=== PATIENT | male | born 1970 | race Caucasian/White ===

== ENCOUNTER 2019-10-22 18:26 | Emergency (ER) | payer SELFPAY ==
--- NOTE | 2019-10-22 19:18 | ER Document Report ---
ED Medical Screen (RME) - General Chief Complaint: Altered Mental Status Stated Complaint: SUSPECTED DRUG ABUSE Time Seen by Provider: 10/22/19 18:57 Information source: Patient Notes: Patient states that he woke up in an ambulance. Patient states that he remembers going to work and getting off going to the bank and then around 530 had no memory of incidents. Nurses note reports that patient saw police and began to run. It was reported that patient ran head first into a trailer. Patient was reported to maybe have had seizure-like activity although this was not able to be confirmed. Patient denies any memory of this. Patient does complain of neck pain and chest pain. Patient also complains of tongue soreness, patient with abrasions to the tongue. Patient states he did have one seizure about 5 years ago but otherwise has no known history of seizure. I have greeted and performed a rapid initial assessment of this patient. A comprehensive ED assessment and evaluation of the patient, analysis of test results and completion of the medical decision making process will be conducted by additional ED providers. TRAVEL OUTSIDE OF THE [place] IN LAST 30 DAYS: No - Related Data Allergies/Adverse Reactions: No Known Allergies Allergy (Unverified 11/02/15 19:24) Past Medical History - Immunizations Hx Diphtheria, Pertussis, Tetanus Vaccination: Yes Physical Exam - Vital signs Vitals: Temp Pulse Resp BP Pulse Ox 98.1 F 109 H 16 108/69 99 10/22/19 18:41 10/22/19 18:41 10/22/19 18:41 10/22/19 18:41 10/22/19 18:41 - General General appearance: Appears well, Alert Notes: Abrasions to tongue, cervical tenderness Course - Vital Signs Vital signs: Temp Pulse Resp BP Pulse Ox 98.1 F 109 H 16 108/69 99 10/22/19 18:41 10/22/19 18:41 10/22/19 18:41 10/22/19 18:41 10/22/19 18:41
--- NOTE | 2019-10-22 19:50 | RADIOLOGY REPORT (SQ) ---
EXAM DESCRIPTION: CT CERVICAL SPINE WITHOUT COMPLETED DATE/TIME: 10/22/2019 7:40 pm REASON FOR STUDY: neck pain, axial load injury COMPARISON: None. TECHNIQUE: Axial images acquired through the cervical spine without intravenous contrast. Images re viewed with lung, soft tissue and bone windows. Reconstructed coronal and sagittal MPR images review ed. Images stored on PACS. All CT scanners at this facility use dose modulation, iterative reconstruction, and/or weight based d osing when appropriate to reduce radiation dose to as low as reasonably achievable (ALARA). [facility]: Dose Right [facility]: CareDose [facility]: Dose Right [facility]: Teradose 4D [facility]: Smart [employer] RADIATION DOSE: CT Rad equipment meets quality standard of care and radiation dose reduction techniq ues were employed. CTDIvol: 17.6 mGy. DLP: 436 mGy-cm. mGy. LIMITATIONS: None. FINDINGS: ALIGNMENT: Anatomic. MINERALIZATION: Normal. VERTEBRAL BODIES: No fractures or dislocation. DISCS: Mild multilevel disc space narrowing with osteophytes. FACETS, LATERAL MASSES, POSTERIOR ELEMENTS: Facet arthropathy. No fractures. No dislocation. No ac telida findings. HARDWARE: None in the spine. VISUALIZED RIBS: No fractures. LUNG APICES AND SOFT TISSUES: Emphysematous changes. OTHER: No other significant finding. IMPRESSION: No evidence of acute osseous injury. Background of mild multilevel spondylotic changes. TECHNICAL DOCUMENTATION: JOB ID: [id number] Quality ID # [id number]: Final reports with documentation of one or more dose reduction techniques (e.g., Au tomated exposure control, adjustment of the mA and/or kV according to patient size, use of iterative reconstruction technique) 2010 [employer]- All Rights Reserved Reading location - IP/workstation name: [email or web address]
--- NOTE | 2019-10-22 19:55 | RADIOLOGY REPORT (SQ) ---
EXAM DESCRIPTION: CHEST 2 VIEWS COMPLETED DATE/TIME: 10/22/2019 7:45 pm REASON FOR STUDY: cp COMPARISON: None. EXAM PARAMETERS: NUMBER OF VIEWS: two views TECHNIQUE: Digital Frontal and Lateral radiographic views of the chest acquired. RADIATION DOSE: NA LIMITATIONS: none FINDINGS: LUNGS AND PLEURA: No focal consolidation, pleural effusion, or pneumothorax. MEDIASTINUM AND HILAR STRUCTURES: No masses or contour abnormalities. HEART AND VASCULAR STRUCTURES: Heart normal size. No evidence for failure. BONES: No acute findings. HARDWARE: None in the chest. OTHER: No other significant finding. IMPRESSION: No evidence of acute cardiopulmonary abnormality. TECHNICAL DOCUMENTATION: JOB ID: [id number] [employer]- All Rights Reserved Reading location - IP/workstation name: [email or web address]
[2019-10-22 20:00] LABS: ABSOLUTE EOSINOPHILS # (AUTO) 0.1 10^3/uL (0.0-0.6); ABSOLUTE MONOCYTES (AUTO) 0.4 10^3/uL (0.1-1.4); ABSOLUTE NEUT (AUTO) 5.7 10^3/uL (1.7-8.2); BASOPHILS % (AUTO) 0.5 % (0-2); EOSINOPHILS % (AUTO) 0.9 % (0-6); HEMATOCRIT 32.9 % (37.9-51.0); HEMOGLOBIN 11.6 g/dL (13.5-17.0); LYMPHOCYTES % (AUTO) 13.4 % (13-45); MEAN CORPUSCULAR HEMOGLOBIN 32.4 pg (27.0-33.4); MEAN CORPUSCULAR HGB CONC 35.2 g/dL (32.0-36.0); MEAN CORPUSCULAR VOLUME 92 fl (80-97); MONOCYTES % (AUTO) 5.8 % (3-13); PLATELET COUNT 287 10^3/uL (150-450); RED BLOOD COUNT 3.57 10^6/uL (4.35-5.55); RED CELL DISTRIBUTION WIDTH 13.3 % (11.5-14.0); SEGMENTED NEUTROPHILS % (AUTO) 79.4 % (42-78); TOTAL CELLS COUNTED % (AUTO) 100 %; WHITE BLOOD COUNT 7.2 10^3/uL (4.0-10.5)
[2019-10-22 20:26] LABS: ALBUMIN 3.9 g/dL (3.5-5.0); ALKALINE PHOSPHATASE 60 U/L (38-126); ANION GAP 7 (5-19); ASPARTATE AMINO TRANSFERASE 111 U/L (17-59); BILIRUBIN,DIRECT 0.1 mg/dL (0.0-0.4); BILIRUBIN,TOTAL 0.4 mg/dL (0.2-1.3); BLOOD UREA NITROGEN 12 mg/dL (7-20); CALCIUM 9.3 mg/dL (8.4-10.2); CARBON DIOXIDE 26 mmol/L (22-30); CHLORIDE 106 mmol/L (98-107); CREATINE KINASE 101 U/L (55-170); GLUCOSE 89 mg/dL (75-110); POTASSIUM 4.3 mmol/L (3.6-5.0)
[2019-10-22 20:28] LABS: ALCOHOL < 10 mg/dL (NONE DETECTED)
[2019-10-22 21:44] LABS: URINE BARBITURATES SCREEN NEGATIVE; URINE BENZODIAZEPINES SCREEN NEGATIVE; URINE COCAINE SCREEN NEGATIVE; URINE MARIJUANA (THC) SCREEN NEGATIVE; URINE METHADONE SCREEN NEGATIVE; URINE PHENCYCLIDINE SCREEN NEGATIVE
--- NOTE | 2019-10-22 22:37 | ER Document Report ---
ED General - General Chief Complaint: Altered Mental Status Stated Complaint: SUSPECTED DRUG ABUSE Time Seen by Provider: 10/22/19 18:57 Mode of Arrival: Medic Information source: Emergency Med Personnel Cannot obtain history due to: Altered mental status, Other - Likely postictal state from seizure activity prior to coming into the ED TRAVEL OUTSIDE OF THE [place] IN LAST 30 DAYS: No - HPI Onset: Just prior to arrival Onset/Duration: Sudden Quality of pain: Achy Severity: Moderate Pain Level: 4 Associated symptoms: Other - Mr. Marito mg is a 49-year-old male with a history of substance abuse sinusitis in the past and syncope. Patient also reports that he had had a seizure 5 years ago and has not had any seizure activity since that time. Patient does have a long history of substance abuse including methamphetamines and Xanax. Patient reports that he did snort some meth amphetamines 1 day ago. Patient states that he had friends to come over to the house where he stays with his mother and because of their commotion and questionable substance abuse and overdose he participated in calling EMS to come to his residence. All the subjects were outside in the yard when the EMS arrive d with lights and sirens. Mr. Allen at that time took off running and ran into his own house striking himself up against the house outside. Patient then ran into the bushes and started seizing. Seizure activity was witnessed as myoclonic jerks. Patient was brought to us by EMS at this time at that time at the scene he was disoriented to time and space. Also complained of neck pain and some chest pain. On arrival patient was oriented x3 but had sketchy memory of the events that happened as to what brought him to the emergency department. Similar symptoms previously: Yes - Seizure activity 5 years ago Recently seen / treated by doctor: No - Related Data Allergies/Adverse Reactions: No Known Allergies Allergy (Unverified 11/02/15 19:24) Past Medical History - General Information source: Patient Cannot obtain history due to: Other - Postictal state and confusion on arrival - Social History Smoking Status: Current Some Day Smoker Frequency of alcohol use: Occasional Drug Abuse: Methamphetamine, Other - Xanax Occupation: Home Health Care Worker Lives with: Family Family History: Reviewed & Not Pertinent, Other - Demented Patient has suicidal ideation: No Patient has homicidal ideation: No - Immunizations Hx Diphtheria, Pertussis, Tetanus Vaccination: Yes Review of Systems - Review of Systems Neurological/Psychological: See HPI, Seizure Physical Exam - Vital signs Vitals: Temp Pulse Resp BP Pulse Ox 98.1 F 109 H 16 108/69 99 10/22/19 18:41 10/22/19 18:41 10/22/19 18:41 10/22/19 18:41 10/22/19 18:41 Interpretation: Normal - General General appearance: Appears well, Alert - HEENT Head: Normocephalic, Atraumatic Eyes: Normal Pupils: PERRL Mucous membranes: Moist, Other - Abrasion to the left side of the tongue no active bleeding at this time - Respiratory Respiratory status: No respiratory distress Chest status: Nontender Breath sounds: Normal Chest palpation: Normal - Cardiovascular Rhythm: Regular Heart sounds: Normal auscultation Murmur: No - Abdominal Inspection: Normal Distension: No distension Bowel sounds: Normal Tenderness: Nontender Organomegaly: No organomegaly - Back Back: Normal, Nontender - Extremities General upper extremity: Normal inspection, Nontender, Normal color, Normal ROM, Normal temperature General lower extremity: Normal inspection, Nontender, Normal color, Normal ROM, Normal temperature, Normal weight bearing. No: Derek's sign - Neurological Neuro grossly intact: Yes Cognition: Normal, Other - Initial confusion on arrival as to the events that led up to his EMS transport to the emergency department. Over time patient was filtering in details of the event of the evening at his residence. He remembered calling EMS to come see they have visitors that are coming to visit him because there was concern that 2 of his friends had overdosed. Patient then became a patient of the EMS as he ran away from the authority ran into the house and struck his head and ran into the bushes and started seizing. Orientation: AAOx4 [place] Coma Scale Eye Opening: Spontaneous [place] Coma Scale Verbal: Oriented [place] Coma Scale Motor: Obeys Commands [place] Coma Scale Total: 15 Speech: Normal Motor strength normal: LUE, RUE, LLE, RLE Sensory: Normal - Psychological Associated symptoms: Normal affect, Normal mood, Flat affect - Skin Skin Temperature: Warm Skin Moisture: Dry Skin Color: Normal Course - Vital Signs Vital signs: Temp Pulse Resp BP Pulse Ox 98.1 F 109 H 15 108/69 97 10/22/19 18:41 10/22/19 18:41 10/23/19 00:00 10/22/19 18:41 10/23/19 00:00 - Laboratory Result Diagrams: 10/22/19 19:21 10/22/19 19:21 Laboratory results interpreted by me: 10/22/19 10/22/19 19:21 19:21 RBC 3.57 L Hgb 11.6 L Hct 32.9 L Seg Neutrophils % 79.4 H AST 111 H - Diagnostic Test Radiology reviewed: Image reviewed, Reports reviewed - EKG Interpretation by Me Additional EKG results interpreted by me: 10/23/19 01:35 There are no acute changes ST elevations or depressions to patient's EKG Discharge - Discharge Clinical Impression: Substance abuse, 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 Observation is necessary, however. Take only clear liquids for the first few hours, unless told otherwise by the doctor. If no pain medication was prescribed, you may take acetaminophen according to the directions on the bottle. Do not take any medication that may alter your level of alertness (unless you've discussed it with the doctor first). Limit activity for the first 24 hours. Bed rest is best. During the first 24 hours, check to see approximately every two to three hours that the patient is easily arousable, responds normally, and can perform common tasks such as walking without difficulty. Contact your doctor or go to the hospital if any of the following things occur: Persistent vomiting, difficulty in arousing the patient, worsening or continued headache, or failure to improve as expected. Head injuries can cause symptoms that persist for a few days or even a few weeks. In addition patient had most likely a substance abuse withdrawal seizure activity this evening. Patient admits to having use of methamphetamine in the past 24 hours. Patient also struck his head tonight and has some loss of memory of the details which suggest a mild concussion. Patient is advised to discontinue use of substance abuse substances, and to follow-up with neurology in 1 to 2 days. Recommend the patient takes Tylenol for his headache. Patient is advised to return to the emergency department if he has further complications. Referrals: ROJAS CLARK MD [NO LOCAL MD] - Follow up as needed
[2019-10-22] MEDS ORDERED: NORMAL SALINE 1000 ML 1,000 ML IV ONE (23:54)
[2019-10-23] MEDS ORDERED: LORAZEPAM INJ 2 MG/1 ML VIAL IV ONE (00:10)
[2019-10-23] MEDS ORDERED: LEVETIRACETAM INJ/PF 500 MG/5 ML SDV IV ONE (00:11)
--- NOTE | 2019-10-23 00:37 | RADIOLOGY REPORT (SQ) ---
CT HEAD WITHOUT IV CONTRAST EXAM DATE: 10/22/2019 11:55 PM PRODUCT DEVELOPMENT ENGINEER HISTORY: Seizure. COMPARISON: None. TECHNIQUE: CT scan of the brain without IV contrast. This exam was performed according to our departmental dose-optimization program, which includes automated exposure control, adjustment of the mA and/or kV according to patient size and/or use of iterative reconstruction technique. FINDINGS: The ventricles, cisterns, and sulci are age-appropriate. No evidence of acute infarction, intracranial hemorrhage, extra-axial fluid collection, or midline shift. Mild mucosal thickening of the left maxillary sinus. No air-fluid levels. Mastoids are clear. No depressed skull fracture. IMPRESSION: No acute intracranial findings.
[2019-10-23] MEDS ORDERED: KETOROLAC TROMETHAMINE INJ/PF 30 MG/1 ML SDV IV ONE (01:03)
[2019-10-23 03:55] VITALS: BP 114/83
--- NOTE | 2019-10-23 09:30 | EKG REPORT ---
SEVERITY:- NORMAL ECG - SINUS RHYTHM : Confirmed by: Pito Ron 23-Oct-2019 09:29:05
== END 2019-10-23 03:55 | disposition home or self-care (01) ==
LOC: ER 18:26
DX: F19.939 Other psychoactive substance use, unspecified with withdrawal, unspecified (principal); F14.10 Cocaine abuse, uncomplicated; F13.10 Sedative, hypnotic or anxiolytic abuse, uncomplicated; G40.802 Other epilepsy, not intractable, without status epilepticus; S00.512A Abrasion of oral cavity, initial encounter; W22.09XA Striking against other stationary object, initial encounter; Y93.89 Activity, other specified; Y92.009 Unspecified place in unspecified non-institutional (private) residence as the place of occurrence of the external cause; G44.309 Post-traumatic headache, unspecified, not intractable; M54.2 Cervicalgia; R07.9 Chest pain, unspecified; F17.200 Nicotine dependence, unspecified, uncomplicated
CPT/HCPCS: 93005; 99285; 96361; 96375; 96365; 36415; 80307 ×2; 82550; 85025; 80053; 84484; 71046; 70450; 72125; 93010; L0120; J1885; J2060; J7030; J1953

== ENCOUNTER 2020-08-01 14:05 | Emergency (ER) | payer SELFPAY ==
[2020-08-01] MEDS ORDERED: LIDOCAINE 1% INJ-PF (10 MG/ML) 30 ML SDV INJ ONE (15:02)
[2020-08-01] MEDS ORDERED: CLINDAMYCIN 900 MG/D5W RTU 900 MG/50 ML RTUPB IV ONE (15:02)
[2020-08-01] MEDS ORDERED: OXYCODONE-ACETAMINOPHEN 5-325 MG TABLET PO ONE (15:03)
--- NOTE | 2020-08-01 15:06 | ER Document Report ---
ED General - General Chief Complaint: Skin Problem Stated Complaint: SKIN ISSUE Time Seen by Provider: 08/01/20 14:31 Mode of Arrival: Ambulatory Information source: Patient Notes: 50-year-old male coming in today chief complaint of skin abscesses. States he was ripping up an old floor and the boards were super wet and moldy. Within a few days he started having some abscesses popping up on his abdomen, the back of his neck, and his face. No previous problem with abscesses. No fevers or chills. No history of diabetes or other immune compromise. TRAVEL OUTSIDE OF THE [place] IN LAST 30 DAYS: No - Related Data Allergies/Adverse Reactions: No Known Allergies Allergy (Verified 08/01/20 14:41) Past Medical History - Social History Smoking Status: Current Every Day Smoker Family History: Reviewed & Not Pertinent, Other - Demented Patient has homicidal ideation: No - Immunizations Hx Diphtheria, Pertussis, Tetanus Vaccination: Yes Review of Systems - Review of Systems Notes: Constitutional: No fevers. No chills. EENT: No eye redness. No eye pain. No ear pain. No sore throat. Cardiovascular: No chest pain. No palpitations. Respiratory: No cough. No shortness of breath. No respiratory distress. Gastrointestinal: No abdominal pain. No nausea, vomiting, or diarrhea. Genitourinary: Atraumatic. No lesions. No pain. No discharge. Musculoskeletal: Atraumatic. No swelling. No deformities. Skin: Positive for multiple abscesses Lymphatic: No swollen lymph nodes. Neurologic: No headache. No syncope. Psychiatric: No suicidal or homicidal ideation. Physical Exam - Vital signs Vitals: Temp Pulse Resp BP Pulse Ox 98.0 F 90 18 119/89 H 100 08/01/20 14:23 08/01/20 14:23 08/01/20 14:23 08/01/20 14:23 08/01/20 14:23 - Notes Notes: General: Well-developed, well-nourished. In no acute distress. Non-toxic appearing. Cardiac: Well-perfused. Regular rate and rhythm. No murmurs, rubs, or gallops. Pulmonary: No respiratory distress. No cyanosis. Bilateral lung fiels are clear to auscultation. Abdominal: Non-distended. Non-rigid. Bowels sounds are present in all four quadrants. No guarding or rebound. HEENT: Head is atraumatic. Conjunctivae not reddened. No tearing. PERRL. EOMI. Orbits atraumatic. No periorbital swelling or erythema. Oropharynx is without erythema, swelling, or exudates. Neck: Supple. No adenopathy. No meningismus. Dermatologic: Large semi-fluctuant scabbed abscess right mid abdomen which is tender to palpate. Nodular indurated abscess to the base of the back of the neck. Scabbed small abscess left upper cheek. Chest: Atraumatic. No chest wall tenderness to palpation. Musculoskeletal: Moves all extremities well. No range of motion deficits. no muscular or joint tenderness. No paraspinal muscle tenderness. no midline spinal tenderness or step-off. Genitourinary: Examination deferred Neurologic: No gross neurologic deficits. Psychiatric: Normal mood. Course - Re-evaluation Re-evalutation: 08/01/20 15:05 We will start the patient on clindamycin IV and incise and drain abscesses. - Vital Signs Vital signs: Temp Pulse Resp BP Pulse Ox 98.0 F 80 18 119/80 100 08/01/20 14:25 08/01/20 14:25 08/01/20 14:25 08/01/20 14:25 08/01/20 14:25 - Laboratory Result Diagrams: 08/01/20 15:17 08/01/20 15:17 Procedures - Incision and Drainage Lower Abdomen Time completed: 16:00 Type: Simple, Multiple - Abscess on the lower right abdomen as well as abscess on the base of the neck Anesthetic type: 1% Lidocaine mL's of anesthetic: 6 Blade size: 11 I&D procedure: Betadine prep applied Incision Method: Incision made by scalpel Amount/type of drainage: Scant purulent Notes: 08/01/20 17:15 There was only a small amount of blood incised and drained from the abdominal abscess. There was a tiny amount of purulent material which was cultured from the neck. No packing was placed in either abscess. Dry sterile dressings were applied. Discharge - Discharge Clinical Impression: Abscess of multiple sites Condition: Good Disposition: HOME, SELF-CARE Instructions: Abscess ([facility]), Cephalexin ([facility]), Oral Narcotic Medication ([facility]) Additional Instructions: Feel free to take a shower and let the water go into all of these abscess sites. You can clean it with antibacterial soap. Keep them covered up during the day so that they do not drain on your clothes. Take your clindamycin as directed for full duration. You will get a small quantity of pain medication that she ma y take for severe pain only. Prescriptions: Sulfamethoxazole/Trimethoprim [Bactrim Ds Tablet] 1 each PO BID 10 Days #20 tablet Cephalexin Monohydrate [Keflex 500 mg Capsule] 500 mg PO Q6H 10 Days #40 capsule
[2020-08-01 15:27] LABS: ABSOLUTE BASOPHILS # (AUTO) 0.1 10^3/uL (0.0-0.2); ABSOLUTE EOSINOPHILS # (AUTO) 0.1 10^3/uL (0.0-0.6); ABSOLUTE LYMPHOCYTES (AUTO) 1.8 10^3/uL (0.5-4.7); ABSOLUTE MONOCYTES (AUTO) 0.8 10^3/uL (0.1-1.4); ABSOLUTE NEUT (AUTO) 7.4 10^3/uL (1.7-8.2); BASOPHILS % (AUTO) 0.7 % (0-2); EOSINOPHILS % (AUTO) 0.9 % (0-6); HEMATOCRIT 41.7 % (37.9-51.0); HEMOGLOBIN 14.6 g/dL (13.5-17.0); LYMPHOCYTES % (AUTO) 17.7 % (13-45); MEAN CORPUSCULAR HGB CONC 35.1 g/dL (32.0-36.0); MEAN CORPUSCULAR VOLUME 94 fl (80-97); MONOCYTES % (AUTO) 7.7 % (3-13); PLATELET COUNT 378 10^3/uL (150-450); RED BLOOD COUNT 4.44 10^6/uL (4.35-5.55); RED CELL DISTRIBUTION WIDTH 12.7 % (11.5-14.0); TOTAL CELLS COUNTED % (AUTO) 100 %; WHITE BLOOD COUNT 10.1 10^3/uL (4.0-10.5)
[2020-08-01 15:51] LABS: ALBUMIN 4.6 g/dL (3.5-5.0); ALKALINE PHOSPHATASE 77 U/L (38-126); ANION GAP 9 (5-19); ASPARTATE AMINO TRANSFERASE 20 U/L (17-59); BILIRUBIN,DIRECT 0.3 mg/dL (0.0-0.4); BILIRUBIN,TOTAL 0.4 mg/dL (0.2-1.3); BLOOD UREA NITROGEN 10 mg/dL (7-20); CALCIUM 9.5 mg/dL (8.4-10.2); CARBON DIOXIDE 27 mmol/L (22-30); CHLORIDE 103 mmol/L (98-107); GLUCOSE 97 mg/dL (75-110); POTASSIUM 4.3 mmol/L (3.6-5.0); TOTAL PROTEIN 8.1 g/dL (6.3-8.2)
[2020-08-01] MEDS ORDERED: HYDROCODONE/ACETAMINOPHEN 5-325 MG (6 TAB/ER DISP) PO PRN (17:20)
[2020-08-01 17:39] VITALS: BP 128/68
== END 2020-08-01 17:39 | disposition home or self-care (01) ==
LOC: ER 14:05
DX: L02.211 Cutaneous abscess of abdominal wall (principal); F17.200 Nicotine dependence, unspecified, uncomplicated
CPT/HCPCS: 99284; 96365; 36415; 87040; 87070; 87205; 85025; 87075; 87077; 80053; 10061; J3490 ×2; 87186